=== PATIENT | female | born 2000 | race Asian ===

== ENCOUNTER → 2025-04-18 | Outpatient (CLI) | payer MEDICAID, SELFPAY ==
--- NOTE | 2025-04-18 15:00 | XR_ITS ---
Examination: MRI right ankle, without contrast Date and time of exam: April 10, 2025 1608 hours INDICATIONS: Medial ankle pain and swelling beginning 4 months ago Technique: Multiple axial sagittal and coronal images of the left ankle have been obtained with the Siemens high-resolution 1.5 [employer] MRI scanner. Images obtained include T2-weighted fat-suppressed sagittal sections, TR 3500, TE 46, T2 weighted coronal fat suppressed images, TR 3050, TE 84, T2-weighted transverse fat suppressed images, TR 3260, TE 63, proton density transverse images, TR 4720 TE 46, and T1 weighted coronal images, TR 560, TE 13. Findings: No occult fracture bone contusion or marrow edema Intact Achilles tendon and plantar fascia Anterior posterior inferior tibiofibular ligaments intact Significant sprain posterior talofibular ligament Flexor tendons intact, diffuse tendinitis Extensor tendons intact Dome the talus intact, negative for osteochondritis dissecans IMPRESSION: No occult fracture Significant sprain posterior talofibular ligament
== END | disposition home or self-care (01) ==
PROVIDERS: PCP Podiatrist; Referring Provider Podiatrist; Visit Provider Podiatrist
DX: S93.491A Sprain of other ligament of right ankle, initial encounter (principal); X58.XXXA Exposure to other specified factors, initial encounter
CPT/HCPCS: 73721